=== PATIENT | female | born 1935 | race Caucasian/White ===

== ENCOUNTER → 2020-05-01 | Outpatient (CLI) | payer OTHER ==
[~2020-05-01] MED LIST: ACETAMINOPHEN650 M5 PO; ARICEPT10 M1 PO; ASPIRIN325 PO; CENTRUM SILVER1 EAC4 PO; FISH OIL 1,001000 M2 PO; FOSAMAX 70 MG T70 MG PO; HYDROCODON-ACE1 EAC7 PO; LIPITOR10 MG PO; LISINOPRIL2.5 MG PO; NAMENDA 10 MG T10 MG PO; OXYCONTIN10 M1 PO; SORINE 80 MG TA80 M1 PO; VITAMIN D-32000 UNIT PO; XARELTO10 MG PO; ZESTRIL5 MG PO
== END | disposition home or self-care (01) ==
LOC: CATH 06:31
PROVIDERS: ATTEND Nuclear Medicine Nuclear Cardiology
DX: M54.9 Dorsalgia, unspecified (principal); Z53.8 Procedure and treatment not carried out for other reasons; M80.08XA Age-related osteoporosis with current pathological fracture, vertebra(e), initial encounter for fracture; Z98.890 Other specified postprocedural states; Z79.899 Other long term (current) drug therapy

== ENCOUNTER → 2020-05-06 | Outpatient (CLI) | payer OTHER ==
[~2020-05-06] VITALS: Ht 147.3 cm; Wt 54.4 kg
[2020-05-06 07:26] VITALS: BP 147/80
[2020-05-06 08:20] LABS: HEMATOCRIT 37.7 % (37.0-47.0); HEMOGLOBIN 12.8 gm/dL (12.0-15.0); MCH 30.3 pg (26.0-34.0); MCHC 33.9 g/dL (28.0-37.0); MCV 89.3 fL (80.0-100.0); RBC 4.22 mil/uL (4.20-5.00); RDW 13.4 % (10.5-14.5)
[2020-05-06 08:26] LABS: CALCIUM 8.5 mg/dL (8.5-10.1); CREATININE 0.6 mg/dL (0.6-1.0); POTASSIUM 4.3 mmol/L (3.5-5.1)
--- NOTE | 2020-05-06 09:09 | NUR ---
PT RETURNED FROM KYPHPLASTY. NO VOICED COMPLAINTS. BANDAID TO PUNCTURE SITE ON BACK INTACT. NO BLEEDING. SLIGHT SWELLING TO SITE FROM LIDOCAINE INJECTION. PT SITTING UP IN BED SIPPING WATER. AT BEDSIDE.
== END | disposition home or self-care (01) ==
LOC: CATH 06:54
PROVIDERS: ATTEND Nuclear Medicine Nuclear Cardiology
DX: M54.9 Dorsalgia, unspecified (principal); M80.08XA Age-related osteoporosis with current pathological fracture, vertebra(e), initial encounter for fracture; I10 Essential (primary) hypertension; E78.00 Pure hypercholesterolemia, unspecified; I48.91 Unspecified atrial fibrillation; Z98.890 Other specified postprocedural states; Z79.899 Other long term (current) drug therapy; Z79.01 Long term (current) use of anticoagulants; Z87.891 Personal history of nicotine dependence; Z90.49 Acquired absence of other specified parts of digestive tract

== ENCOUNTER → 2020-06-20 | Outpatient (CLI) | payer OTHER ==
[~2020-06-20] MED LIST changes: +XARELTO10 M1 PO
== END ==
LOC: MRI 09:25
PROVIDERS: ATTEND Nuclear Medicine Nuclear Cardiology
DX: M47.814 Spondylosis without myelopathy or radiculopathy, thoracic region (principal); M48.54XD Collapsed vertebra, not elsewhere classified, thoracic region, subsequent encounter for fracture with routine healing; Z98.890 Other specified postprocedural states

== ENCOUNTER → 2020-06-20 | Outpatient (CLI) | payer OTHER | LOC: SJCVC 11:38 | PROVIDERS: ATTEND Nuclear Medicine Nuclear Cardiology | DX: M80.08XA Age-related osteoporosis with current pathological fracture, vertebra(e), initial encounter for fracture (principal); I48.91 Unspecified atrial fibrillation; I10 Essential (primary) hypertension; M54.6 Pain in thoracic spine; G31.84 Mild cognitive impairment of uncertain or unknown etiology ==

== ENCOUNTER → 2020-06-23 | Outpatient (CLI) | payer OTHER ==
[~2020-06-23] VITALS: Ht 152.4 cm; Wt 52.2 kg
[2020-06-23 10:03] VITALS: BP 163/91
[2020-06-23 10:20] LABS: HEMATOCRIT 38.5 % (37.0-47.0); HEMOGLOBIN 12.7 gm/dL (12.0-15.0); MCH 29.8 pg (26.0-34.0); MCHC 32.9 g/dL (28.0-37.0); MCV 90.4 fL (80.0-100.0); RBC 4.26 mil/uL (4.20-5.00); WBC 8.9 thou/uL (4.0-11.0)
[2020-06-23 10:35] LABS: CALCIUM 9.1 mg/dL (8.5-10.1); CREATININE 0.7 mg/dL (0.6-1.0); POTASSIUM 4.2 mmol/L (3.5-5.1)
== END | disposition home or self-care (01) ==
LOC: CATH 09:13
PROVIDERS: ATTEND Nuclear Medicine Nuclear Cardiology
DX: M80.08XA Age-related osteoporosis with current pathological fracture, vertebra(e), initial encounter for fracture (principal); M54.9 Dorsalgia, unspecified; I10 Essential (primary) hypertension; E78.00 Pure hypercholesterolemia, unspecified; I48.91 Unspecified atrial fibrillation; Z98.890 Other specified postprocedural states; Z79.899 Other long term (current) drug therapy; Z79.01 Long term (current) use of anticoagulants; Z88.8 Allergy status to other drugs, medicaments and biological substances

== ENCOUNTER → 2020-07-08 | Outpatient (CLI) | payer OTHER | LOC: SJCVC 13:16 | PROVIDERS: ATTEND Nuclear Medicine Nuclear Cardiology | DX: M80.08XD Age-related osteoporosis with current pathological fracture, vertebra(e), subsequent encounter for fracture with routine healing (principal); G31.84 Mild cognitive impairment of uncertain or unknown etiology; I10 Essential (primary) hypertension; I48.91 Unspecified atrial fibrillation ==